=== PATIENT | female | born 1945 | race Caucasian/White ===

== ENCOUNTER 2022-04-12 12:36 | Outpatient (CLI) | payer MEDICARE, BC | END 2022-04-12 12:37 | disposition home or self-care (01) | LOC: CSHSPEC 12:36 | PROVIDERS: ATTEND Physician Assistant | DX: M24.811 Other specific joint derangements of right shoulder, not elsewhere classified (principal) | CPT/HCPCS: 71045 ==

== ENCOUNTER 2022-10-26 10:55 | Outpatient (CLI) | payer MEDICARE, BC | END 2022-10-26 10:56 | disposition home or self-care (01) | LOC: CSHMAMMO 10:55 | PROVIDERS: ATTEND Internal Medicine Rheumatology | DX: M81.0 Age-related osteoporosis without current pathological fracture (principal); M85.851 Other specified disorders of bone density and structure, right thigh | CPT/HCPCS: 77080 ==